=== PATIENT | female | born 1970 | race Caucasian/White ===

== ENCOUNTER → 2018-12-07 | Outpatient (CLI) | payer MEDICARE, OTHER ==
[2018-12-07 07:58] LABS: INR 1.1 (<1.2); Prothrombin Time 11.8 sec (9.0-12.0)
[2018-12-07 08:02] LABS: Basophils % (A) 1 %; Eosinophils # (A) 0.1 k/uL (0-0.7); Eosinophils % (A) 4 %; HCT 38.6 % (34.0-46.0); Lymphocytes % (A) 33 %; MCH 32.7 pg (25.0-35.0); MCHC 33.6 g/dL (31.0-37.0); MCV 97.5 fL (80.0-100.0); Mean Platelet Volume 8.3; Monocytes # (A) 0.2 k/uL (0-1.0); Monocytes % (A) 5 %; Neutrophils # (A) 1.7 k/uL (1.3-7.7); Neutrophils % (A) 54 %; RBC 3.96 m/uL (3.80-5.40); RDW 14.1 % (11.5-15.5); WBC 3.1 k/uL (3.8-10.6)
[2018-12-07 08:19] LABS: Albumin 3.3 g/dL (3.5-5.0); Bilirubin, Delta 0.4 mg/dL (0.0-0.2); Bilirubin,Unconjugated 0.5 mg/dL (0.0-1.1); Total Bilirubin 0.9 mg/dL (0.2-1.3); Total Protein 7.3 g/dL (6.3-8.2)
[2018-12-07 08:55] LABS: Platelet Count 77 k/uL (150-450)
[2018-12-07 08:57] LABS: Poikilocytosis (M) Present
--- NOTE | 2018-12-07 09:22 | US ---
EXAMINATION TYPE: US abdomen complete DATE OF EXAM: 12/07/2018 COMPARISON: NONE CLINICAL HISTORY: D69.6 Thrombocytopenia, unspecified. 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 This results in limited evaluation for underl julianne masses. Gallbladder: Surgically absent Evidence for sonographic Brunner's sign: No CBD: Surgically absent Spleen: borderline enlarged Right Kidney: wnl Left Kidney: possible small cortical cyst 1.0 x 1.2 x 0.8 cm Upper IVC: Obscured by overlying bowel gas Abd Aorta: Obscured by overlying bowel gas The liver is heterogenous. The intrahepatic portion of the IVC and proximal abdominal aorta are withi n normal limits. Common bile duct is unremarkable. The visualized portions of the pancreas are homog enous. The spleen is unremarkable. Kidneys are symmetric and free of hydronephrosis. IMPRESSION: 1. Coarsened and heterogenous hepatic echotexture is nonspecific and can be seen in hepatic steatosis or other hepatocellular diseases. Markedly limited evaluation for hepatic masses. 2. Borderline splenomegaly with the spleen measuring 13.7 cm in longitudinal dimension. 3. Suboptimally visualized left renal lesion given patient body habitus. This could represent a small cortical cyst.
[2018-12-07 16:59] LABS: Hepatitis A Antibody IgM Non-Reactive (Non-Reactive); Hepatitis B Core IgM Reactive (Non-Reactive); Hepatitis B Surface Antigen Non-Reactive (Non-Reactive); Hepatitis C IgG Antibody Non-Reactive (Non-Reactive)
== END | disposition home or self-care (01) ==
LOC: RADUSWWP 06:57
PROVIDERS: ATTEND Internal Medicine Gastroenterology
DX: D69.6 Thrombocytopenia, unspecified (principal); S36.13XA Injury of bile duct, initial encounter
CPT/HCPCS: 36415; 76700; 80074; 80076; 85025; 85610

== ENCOUNTER → 2019-01-17 | Outpatient (CLI) | payer MEDICARE, OTHER ==
--- NOTE | 2019-01-17 08:31 | MR ---
EXAMINATION TYPE: MR MRCP DATE OF EXAM: 01/17/2019 COMPARISON: Complete abdominal ultrasound December 07, 2018 HISTORY: CBD STENOSIS, history of cholecystectomy. Standard multiplanar, multisequence MRI departmental protocol Multiplanar, multisequence images of the abdomen were acquired. Thin and thick slice MRCP imaging per formed on the MRI scanner. FINDINGS: Liver/gallbladder/pancreas/biliary system: Gallbladder noted surgically absent. Liver is normal in si ze with mild diffuse signal dropout consistent with diffuse fatty infiltration. No suspicious solid m asses are present. There are subcentimeter T2 hyperintense lesion lateral segment left hepatic lobe a xial image 21 felt to reflect thin-walled cyst. Pancreas shows overall mild generalized atrophy. MRCP images show no suspicious pancreatic ductal dilatation. Small caliber biliary system makes evaluatio n suboptimal with diffuse small caliber of the intrahepatic and extra hepatic biliary ducts. There is motion artifact degradation making difficult visualizing particularly the extrahepatic biliary syste m. Caliber appears grossly unremarkable on reconstructed images for reference series 703. Other: Splenomegaly is confirmed measuring 16.3 cm long axis axial image 23. There is roughly 1.5 cm Central splenule axial image 21. No adrenal masses or hydronephrosis. No suspicious bowel dilatation. No abdominal ascites. Visualized osseous structures are intact. IMPRESSION: Small caliber biliary system without obvious focal areas of stenosis or dilatation. Splen omegaly is confirmed and may warrant further clinical workup seen more prominent than suspected on re cent ultrasound.
== END | disposition home or self-care (01) ==
LOC: RADMRIMAIN 07:53
PROVIDERS: ATTEND Nurse Practitioner
DX: R16.1 Splenomegaly, not elsewhere classified (principal); R10.9 Unspecified abdominal pain
CPT/HCPCS: 74181

== ENCOUNTER 2019-04-17 09:44 | Day surgery (SDC) | payer MEDICARE, OTHER ==
[2019-04-16 09:29] VITALS: BMI 24.1
[~2019-04-17 09:44] MED LIST: LACTATED RINGERS 1,000 ML IV SCH; LIDOCAINE 1% 20 ML VIAL (10MG/ML) FOR IV START INTRADERMA PRN
[2019-04-17 11:02] VITALS: TEMP 96.9
[2019-04-17] MEDS ORDERED: PROPOFOL 10 MG/ML 20 ML VIAL IV ONE (11:32)
[2019-04-17 12:22] VITALS: BP 115/66; PULSE 74; RESP 16
--- NOTE | 2019-04-17 12:46 | P.PCN ---
Date of Procedure: 04/17/19 Description of Procedure: BRIEF HISTORY: Patient is a 48-year-old female presenting for outpatient colonoscopy for investigation of rectal bleed. Previous colonoscopy aborted secondary to poor prep. PROCEDURE PERFORMED: Colonoscopy aborted/failed. PREOPERATIVE DIAGNOSIS: Rectal bleed. ESTIMATED BLOOD LOSS: Minimal. IV sedation per Anesthesia. PROCEDURE: After informed consent was obtained, the patient, was brought into the endoscopy unit. IV sedation was administered by Anesthesia under continuous monitoring. Digital rectal examination was normal. Initially the Olympus CF-190 flexible video colonoscope was then inserted in the rectum, gradually advanced into the descending colon which time the procedure was aborted secondary to a poor prep. The patient had liquid and solid stool noted throughout the colon and the procedure was aborted as it was unsafe to proceed due to limited visualization of the mucosa and the setting of a poor prep. The patient tolerated the procedure well. IMPRESSION: Failed/aborted colonoscopy secondary to poor prep, with a large amount of solid and liquid stool throughout the visualized colon. RECOMMENDATIONS: Findings of this examination were discussed with the patient her mother. Okay to resume diet. Okay to resume medications. Patient should follow-up in gastroenterology clinic as scheduled. Patient reports severe constipation and was told to start a bowel regimen of MiraLAX twice daily, with operations performed in clinic. Patient reports no bowel movements until this morning and will need more comprehensive prep prior to next colonoscopy.
== END 2019-04-17 12:59 | disposition home or self-care (01) ==
LOC: ORWHC2ENDO 09:44
PROVIDERS: ATTEND Internal Medicine
DX: K62.5 Hemorrhage of anus and rectum (principal); K59.00 Constipation, unspecified; J44.9 Chronic obstructive pulmonary disease, unspecified; K21.9 Gastro-esophageal reflux disease without esophagitis; Z97.2 Presence of dental prosthetic device (complete) (partial); Z72.0 Tobacco use; Z88.1 Allergy status to other antibiotic agents; Z88.5 Allergy status to narcotic agent; Z88.0 Allergy status to penicillin; Z88.8 Allergy status to other drugs, medicaments and biological substances; Z88.2 Allergy status to sulfonamides; Z79.899 Other long term (current) drug therapy; Z79.891 Long term (current) use of opiate analgesic; Z90.49 Acquired absence of other specified parts of digestive tract; Z98.890 Other specified postprocedural states; Z98.51 Tubal ligation status; Z90.89 Acquired absence of other organs
CPT/HCPCS: 45330; J2704

== ENCOUNTER → 2019-04-19 | Day surgery (SDC) | payer MEDICARE, OTHER ==
[2019-04-18 08:16] VITALS: BMI 24.1
[2019-04-19 13:26] VITALS: BP 106/67; PULSE 75; RESP 16; TEMP 95.7
--- NOTE | 2019-04-20 10:08 | PCN ---
PROCEDURE NOTE DATE OF PROCEDURE: 04/19/2019 REQUESTING PHYSICIAN: Dr. Mehran Vogel PROCEDURE PERFORMED: Esophageal manometry, high-resolution impedance esophageal manometry. BRIEF HISTORY: The patient is a 48-year-old white female who has been having intermittent dysphagia to solids for the last few months duration. She had an upper endoscopy done that showed LA grade B reflux esophagitis. She has been on omeprazole with no significant improvement in her symptoms. Because of the persistent dysphagia, she was scheduled for esophageal manometry to evaluate for any esophageal motility disorders. PREOPERATIVE DIAGNOSIS: Intermittent dysphagia to solids. PROCEDURE: After informed consent was obtained from the patient, she was brought into the endoscopy unit. The esophageal manometry catheter was passed from the external nostril and was gently advanced into the esophagus and stomach. The study was performed using liquid and viscous swallows. Results were interpreted using [place] classification. The following are the study results: 1. Mean IRP (integral residual pressure) is 18 mmHg. 2. Mean DCI, 1196 mmHg.S.cm. 3. Peristaltic contractions 40%, ineffective contractions 10%, simultaneous contractions, 40%. 4. Complete liquid transit 40%. 5. Complete viscous transit 50%. INTERPRETATION: This study shows normal lower esophageal sphincter pressures. The motility pattern involving the esophageal body shows intermittent normal peristalsis, but there are a few simultaneous contractions noted. There is no evidence of esophageal achalasia. MMODL / IJN: [id number] /
== END ==
LOC: ORWHC2ENDO 12:52
PROVIDERS: ATTEND Internal Medicine Gastroenterology
DX: R13.10 Dysphagia, unspecified (principal); K21.0 Gastro-esophageal reflux disease with esophagitis
CPT/HCPCS: 91010; 91037